=== PATIENT | male | born 1985 | race Two or more races ===

== ENCOUNTER → 2019-05-15 | Emergency (ER) | payer OTHER ==
[~2019-05-15] MED LIST: CIPR-344 PO; CLAR-1 PO; METR-1 PO; NS(*) 0.9% 1000 ML BAG 1,000 ML IV ONE; ONDANSETRON 4 MG/2 ML VIAL IVP ONE; PANT40TA65 PO
--- NOTE | 2019-05-15 19:10 | ER Report ---
History and Physical Time Seen By MD: 19:08 HPI/ROS CHIEF COMPLAINT: Nausea, vomiting and diarrhea HISTORY OF PRESENT ILLNESS: This is a 33-year-old male who presents to the emergency room for nausea, vomiting and diarrhea. Patient is an over the road tow truck operator, he lives in [place], states he ate something a couple of days ago thinks may be causing him to have nausea, vomiting and diarrhea. He feels bloated, diffuse abdominal discomfort, no blood in the diarrhea or emesis. No fevers or chills. No chest pain or shortness of breath. He states that he thinks it was a salad that he ate when he was in [place]. He is otherwise healthy. REVIEW OF SYSTEMS: Respiratory: No cough, no dyspnea. Cardiovascular: No chest pain, no palpitations. Gastrointestinal: As above. Musculoskeletal: No back pain. Allergies: Coded Allergies: No Known Drug Allergies (Unverified , 05/15/19) Home Meds Active Scripts Pantoprazole Sodium (PANTOPRAZOLE SODIUM) 40 Mg Tablet.dr, 40 MG PO BID for 14 Days, #24 TAB.SR Prov:SAHIL GUTIERREZ [facility] 05/15/19 Clarithromycin (CLARITHROMYCIN) 500 Mg Tablet, 500 MG PO BID for 14 Days, #28 TAB Prov:SAHIL GUTIERREZ [facility] 05/15/19 Metronidazole (FLAGYL) 500 Mg Tablet, 500 MG PO TID for 14 Days, #42 TAB 0 Refills Prov:SAHIL GUTIERREZ [facility] 05/15/19 Discontinued Scripts Ciprofloxacin Hcl 500 Mg Tab (CIPRO 500 MG TAB) 500 Mg Tablet, 500 MG PO BID for 7 Days, #14 TAB 0 Refills Prov:SAHIL GUTIERREZ [facility] 05/15/19 Past Medical/Surgical History The patient has no significant past medical or surgical history. Reviewed Nurses Notes: Yes Constitutional Vital Sign - Last 24 Hours 05/15/19 05/15/19 05/15/19 05/15/19 19:10 19:14 19:23 19:30 Temp 97.8 Pulse 94 92 Resp 16 B/P (MAP) 122/84 (97) 122/84 121/98 (106) Pulse Ox 96 97 O2 Delivery Room Air 05/15/19 19:38 Pulse 96 Pulse Ox 95 Physical Exam General Appearance: The patient is alert, has no immediate need for airway protection and no current signs of toxicity. Eyes: Pupils equal and round no injection. Respiratory: Chest is non tender, lungs are clear to auscultation. Cardiac: regular rate and rhythm, no murmurs, clicks or rubs. Gastrointestinal: Abdomen is soft, mild tenderness to the epigastrium, no masses, hyperactive bowel sounds. Musculoskeletal: Neck: Neck is supple and non tender. Extremities have full range of motion and are non tender. Skin: No rashes or lesions. DIFFERENTIAL DIAGNOSIS: After history and physical exam differential diagnosis was considered for bowel obstruction, traveler's diarrhea, Helicobacter pylori, C. difficile, gastroenteritis. Medical Decision Making Data Points Result Diagram: 05/15/19192405/15/191924 Laboratory Hematology Test 05/15/19 19:18 05/15/19 19:25 Urine Color Yellow Urine Clarity Clear Urine pH 6.0 pH (4.8-9.5) Urine Specific [place] 1.014 Urine Protein Negative mg/dL (NEGATIVE) Urine Glucose (UA) Negative mg/dL (NEGATIVE) Urine Ketones Negative mg/dL (NEGATIVE) Urine Blood Negative (NEGATIVE) Urine Nitrite Negative (NEGATIVE) Urine Bilirubin Negative (NEGATIVE) Urine Urobilinogen Negative mg/dL (0.2-1.9) Urine Leukocyte Esterase Trace (NEGATIVE) Urine RBC 1 /HPF (0-2/HPF) Urine WBC 15 /HPF (0-5/HPF) Urine Squamous Epithelial Cells None /LPF (</=FEW) Urine Bacteria Negative /HPF (NONE-FEW) Urine Mucus None /HPF (NONE-FEW) Red Blood Count 5.01 M/uL (4.00-5.60) Mean Corpuscular Volume 87.2 fL (80.0-96.0) Mean Corpuscular Hemoglobin 30.1 pg (26.0-33.0) Mean Corpuscular Hemoglobin Concent 34.5 g/dL (32.0-36.0) Red Cell Distribution Width 12.8 % (11.5-14.5) Mean Platelet Volume 8.7 fL (7.2-11.1) Neutrophils (%) (Auto) 62.9 % (39.4-72.5) Lymphocytes (%) (Auto) 21.6 % (17.6-49.6) Monocytes (%) (Auto) 14.1 % (4.1-12.4) Eosinophils (%) (Auto) 0.7 % (0.4-6.7) Basophils (%) (Auto) 0.7 % (0.3-1.4) Nucleated RBC Relative Count (auto) 0.0 /100WBC Neutrophils # (Auto) 3.6 K/uL (2.0-7.4) Lymphocytes # (Auto) 1.2 K/uL (1.3-3.6) Monocytes # (Auto) 0.8 K/uL (0.3-1.0) Eosinophils # (Auto) 0.0 K/uL (0.0-0.5) Basophils # (Auto) 0.0 K/uL (0.0-0.1) Nucleated RBC Absolute Count (auto) 0.00 K/uL Sodium Level 141 mmol/L (137-145) Potassium Level 3.8 mmol/L (3.5-5.0) Chloride Level 99 mmol/L (98-107) Carbon Dioxide Level 29 mmol/L (22-30) Blood Urea Nitrogen 12 mg/dl (9-21) Creatinine 1.30 mg/dl (0.66-1.25) Glomerular Filtration Rate Calc > 60.0 Random Glucose 100 mg/dl (75-110) Calcium Level 10.0 mg/dl (8.4-10.2) Total Bilirubin 0.4 mg/dl (0.2-1.3) Aspartate Amino Transf (AST/SGOT) 20 U/L (0-35) Alanine Aminotransferase (ALT/SGPT) 33 U/L (0-56) Alkaline Phosphatase 63 U/L (0-126) Total Protein 8.2 g/dl (6.3-8.2) Albumin 4.7 g/dl (3.5-5.0) Lipase 77 U/L (23-300) Helicobacter pylori IgG Antibody Positive (NEGATIVE) Chemistry Test 05/15/19 19:18 05/15/19 19:25 Urine Color Yellow Urine Clarity Clear Urine pH 6.0 pH (4.8-9.5) Urine Specific [place] 1.014 Urine Protein Negative mg/dL (NEGATIVE) Urine Glucose (UA) Negative mg/dL (NEGATIVE) Urine Ketones Negative mg/dL (NEGATIVE) Urine Blood Negative (NEGATIVE) Urine Nitrite Negative (NEGATIVE) Urine Bilirubin Negative (NEGATIVE) Urine Urobilinogen Negative mg/dL (0.2-1.9) Urine Leukocyte Esterase Trace (NEGATIVE) Urine RBC 1 /HPF (0-2/HPF) Urine WBC 15 /HPF (0-5/HPF) Urine Squamous Epithelial Cells None /LPF (</=FEW) Urine Bacteria Negative /HPF (NONE-FEW) Urine Mucus None /HPF (NONE-FEW) White Blood Count 5.7 k/uL (4.5-11.0) Red Blood Count 5.01 M/uL (4.00-5.60) Hemoglobin 15.1 g/dL (14.0-18.0) Hematocrit 43.7 % (42.0-52.0) Mean Corpuscular Volume 87.2 fL (80.0-96.0) Mean Corpuscular Hemoglobin 30.1 pg (26.0-33.0) Mean Corpuscular Hemoglobin Concent 34.5 g/dL (32.0-36.0) Red Cell Distribution Width 12.8 % (11.5-14.5) Platelet Count 254 K/uL (150-450) Mean Platelet Volume 8.7 fL (7.2-11.1) Neutrophils (%) (Auto) 62.9 % (39.4-72.5) Lymphocytes (%) (Auto) 21.6 % (17.6-49.6) Monocytes (%) (Auto) 14.1 % (4.1-12.4) Eosinophils (%) (Auto) 0.7 % (0.4-6.7) Basophils (%) (Auto) 0.7 % (0.3-1.4) Nucleated RBC Relative Count (auto) 0.0 /100WBC Neutrophils # (Auto) 3.6 K/uL (2.0-7.4) Lymphocytes # (Auto) 1.2 K/uL (1.3-3.6) Monocytes # (Auto) 0.8 K/uL (0.3-1.0) Eosinophils # (Auto) 0.0 K/uL (0.0-0.5) Basophils # (Auto) 0.0 K/uL (0.0-0.1) Nucleated RBC Absolute Count (auto) 0.00 K/uL Glomerular Filtration Rate Calc > 60.0 Calcium Level 10.0 mg/dl (8.4-10.2) Total Bilirubin 0.4 mg/dl (0.2-1.3) Aspartate Amino Transf (AST/SGOT) 20 U/L (0-35) Alanine Aminotransferase (ALT/SGPT) 33 U/L (0-56) Alkaline Phosphatase 63 U/L (0-126) Total Protein 8.2 g/dl (6.3-8.2) Albumin 4.7 g/dl (3.5-5.0) Lipase 77 U/L (23-300) Helicobacter pylori IgG Antibody Positive (NEGATIVE) Urinalysis Test 05/15/19 19:18 Urine Color Yellow Urine Clarity Clear Urine pH 6.0 pH (4.8-9.5) Urine Specific [place] 1.014 Urine Protein Negative mg/dL (NEGATIVE) Urine Glucose (UA) Negative mg/dL (NEGATIVE) Urine Ketones Negative mg/dL (NEGATIVE) Urine Blood Negative (NEGATIVE) Urine Nitrite Negative (NEGATIVE) Urine Bilirubin Negative (NEGATIVE) Urine Urobilinogen Negative mg/dL (0.2-1.9) Urine Leukocyte Esterase Trace (NEGATIVE) Urine RBC 1 /HPF (0-2/HPF) Urine WBC 15 /HPF (0-5/HPF) Urine Squamous Epithelial Cells None /LPF (</=FEW) Urine Bacteria Negative /HPF (NONE-FEW) Urine Mucus None /HPF (NONE-FEW) ED Course/Re-evaluation Clinical Indication for ER IV: Hydration, IV Access ED Course The patient was admitted to room. A history of physical were obtained. Differential diagnoses were considered. An IV was started. A CBC, CMP, H. pylori were obtained. A 1 L normal C and bolus was given. 4 mg IV Zofran. Patient had relief of his nausea, states feeling better after the liter of saline.Labs are unremarkable other than creatinine 1.30, likely dehydration, negative UA, serology showing positive for H. pylori. I did review the results with the patient, patient was started on Flagyl, clarithromycin, and her tonics for 14 days. Patient was also given 2 days off of work. Patient understands he is to complete the antibiotic course, his follow-up in the nearest emergency department or clinic if he has persistent complications secondary to the H. pylori. Patient had no other questions or concerns at this time and discharged home. Decision to Disposition Date: May 15, 2019 Decision to Disposition Time: 19:57 Depart Departure Latest Vital Signs Vital Signs Date Time Temp Pulse Resp B/P (MAP) Pulse Ox O2 Delivery O2 Flow Rate FiO2 05/15/19 19:38 96 95 05/15/19 19:30 121/98 (106) 05/15/19 19:14 97.8 16 Room Air Impression: Primary Impression: Nausea, vomiting, and diarrhea Additional Impression: Helicobacter pylori (H. pylori) infection Condition: Improved Disposition: HOME OR SELF-CARE New Scripts Pantoprazole Sodium (PANTOPRAZOLE SODIUM) 40 Mg Tablet.dr 40 MG PO BID for 14 Days, #24 TAB.[facility] Clarithromycin (CLARITHROMYCIN) 500 Mg Tablet 500 MG PO BID for 14 Days, #28 TAB Prov: SAHIL GUTIERREZ [facility] 05/15/19 Metronidazole (FLAGYL) 500 Mg Tablet 500 MG PO TID for 14 Days, #42 TAB 0 [facility] Patient Instructions: Helicobacter Pylori (ED) Additional Instructions: Drink plenty of fluids. Get plenty of rest. I have prescribed 2 antibiotics, please take these as directed. If no improvement while you are on the road, please follow up in the nearest emergency department or clinic. Return to the ED for any other concerns or worsening symptoms. Problem Qualifiers SAHIL GUTIERREZ- May 15, 2019 19:10
[2019-05-15 19:41] LABS: PLATELET COUNT, AUTOMATED 254 K/uL (150-450)
[2019-05-15 20:30] VITALS: BP 119/82
== END ==
LOC: ER 19:38
DX: R11.2 Nausea with vomiting, unspecified (principal); R19.7 Diarrhea, unspecified; B96.81 Helicobacter pylori [H. pylori] as the cause of diseases classified elsewhere
CPT/HCPCS: 81001; 83690; 85025; 86677; 96374; 99283; J2405; J7030; 82040; 82247; 82310; 82374; 82435; 82565; 82947; 84075; 84132; 84155; 84295; 84450; 84460; 84520